=== PATIENT | female | born 1955 | race Caucasian/White ===

== ENCOUNTER 2018-12-29 13:32 | Emergency (ER) | payer BC, OTHER ==
[2018-12-29 13:51] VITALS: BP 162/85; PULSE 92; O2SAT 98
--- NOTE | 2018-12-29 13:57 | ERPHSYRPT ---
- History of Present Illness Time Seen by Provider: 12/29/18 13:52 Source: patient Patient Subjective Stated Complaint: bilateral ear aches with drainage, sore throat, headache, whole body aching, Triage Nursing Assessment: Pt walked into the ER, hypertensive, swollen glands in neck, hard to swallow, denies N&V, pulses normal, no puscules in throat seen , lungs clear Physician History: mild aches and sore throat for a few days, family member has similar symptoms, feverish, no lethargy, speech fluent, bilateral ear aches Allergies/Adverse Reactions: Sulfa (Sulfonamide Antibiotics) Allergy (Verified 12/29/18 13:51) Home Medications: clonazePAM [Clonazepam] 1 mg PO DAILY 12/29/18 [History] - Review of Systems Constitutional: Fever, Fatigue, No Lethargy Eyes: No Discharge, No Eye Redness Ears, Nose, & Throat: Nose Congestion, Throat Pain Respiratory: Cough, No Cyanosis, No Dyspnea Cardiac: No Chest Pain Abdominal/Gastrointestinal: No Abdominal Pain Musculoskeletal: No Injury Skin: No Rash Neurological: No Dizziness, No Focal Weakness - Past Medical History Pertinent Past Medical History: Yes Musculoskeletal History: Degenerative Disk Disease Psycho-Social History: Depression - Past Surgical History Past Surgical History: Yes Musculoskeletal: Other Other Surgical History: back surgery - Social History Smoking Status: Current every day smoker How long have you smoked: 45 years Exposure to second hand smoke: Yes Drug Use: none Patient Lives Alone: No - Nursing Vital Signs Nursing Vital Signs: Initial Vital Signs Temperature 98.1 F 12/29/18 13:37 Pulse Rate 92 H 12/29/18 13:37 Blood Pressure 162/85 12/29/18 13:37 O2 Sat by Pulse Oximetry 98 12/29/18 13:37 Pain Scale Pain Intensity 5 - Physical Exam General Appearance: no apparent distress Eye Exam: PERRL/EOMI, eyes nml inspection Ears, Nose, Throat Exam: moist mucous membranes, TM abnormal (R), TM abnormal (L ), pharyngeal erythema, other (no peritonsillar mass) Neck Exam: full range of motion, No meningismus Respiratory Exam: normal breath sounds Cardiovascular Exam: regular rate/rhythm Gastrointestinal/Abdomen Exam: soft, No tenderness Back Exam: normal range of motion Extremity Exam: normal inspection Neurologic Exam: alert, oriented x 3, cooperative Skin Exam: normal color, warm, dry Lymphatic Exam: adenopathy SpO2 Interpretation: normal SpO2: 98 - Course Nursing assessment & vital signs reviewed: Yes - Progress Air Movement: good Progress Note: 12/29/18 13:55 see your doctor, return if worse, zpak, oral fluids, tylenol - Departure Departure Disposition: Home Clinical Impression: Otitis media Qualifiers: Otitis media type: unspecified Chronicity: acute Qualified Code(s): H66.90 - Otitis media, unspecified, unspecified ear Condition: Stable Critical Care Time: No Instructions: Sore Throat, Adult (DC) Prescriptions: Azithromycin 250 mg [Zithromax 250 MG TABLET] 250 mg PO ZPACK #6 tablet
== END 2018-12-29 14:26 | disposition home or self-care (01) ==
LOC: ED 13:32
DX: H66.90 Otitis media, unspecified, unspecified ear (principal)
CPT/HCPCS: 99283